=== PATIENT | male | born 1985 | race Caucasian/White ===

== ENCOUNTER 2016-07-10 23:50 | Emergency (ER) | payer SELFPAY ==
--- NOTE | 2016-07-20 08:39 | ER ---
ADMIT: 07/10/2016 RM/LOC: ER [facility] MR#: [id number] [facility] [id number] ELKE RENDON [address] [place] [address] Emergency Room Report SEX: M AGE: 31 : 1985 DATE: 07/10/2016 A 31-year-old who comes with 2 months worse of intermittent burning when he urinates. No discharge. No fever or chills. No pain. He is concerned because 2 months ago, his ex-girlfriend had a pill bottle at home that had what he felt was the word chlamydia written on the pill bottle, so he is concerned he may have it. His exam was unremarkable. UA was clean. The patient is diagnosed with dysuria. Encouraged to use protection when he is having sex and follow up with his primary doctor as needed. Dk Whaley MD/ dwayne JOB #: [id number] CC: Judah Storm MD, Attending Physician Mercedes Madsen MD, Family Physician
== END 2016-07-11 00:35 | disposition home or self-care (01) ==
LOC: ER 23:50
DX: R30.0 Dysuria (principal); F17.200 Nicotine dependence, unspecified, uncomplicated